=== PATIENT | male | born 1980 | race Caucasian/White ===

== ENCOUNTER 2016-10-25 18:35 | Emergency (ER) | payer BC, MEDICAID ==
[2016-10-25 18:39] VITALS: BP 112/75
[2016-10-25] MEDS ORDERED: BUFFERED LIDOCAINE 10 ML SYRINGE ONE (19:19)
--- NOTE | 2016-10-25 19:20 | ED Physician Documentation ---
PD HPI HEENT - Stated complaint Stated Complaint: TOOTH PX,FACIAL SWELLING - Chief complaint Chief Complaint: Heent - History obtained from History obtained from: Patient - History of Present Illness Timing - onset: Other (He has a dental infection from a right maxillary canine, was seen at the dental clinic 2 days ago and put on penicillin but despite that his facial swelling worsens. He denies fevers.) Review of Systems Constitutional: denies: Fever, Chills Ears: denies: Loss of hearing, Ear pain Nose: denies: Rhinorrhea / runny nose, Congestion Throat: reports: Dental pain / toothache. denies: Oral lesions / sores, Sore throat PD PAST MEDICAL HISTORY - Past Medical History Past Medical History: No - Past Surgical History Past Surgical History: No - Present Medications Home Medications: Ambulatory Orders Medication Instructions Recorded Confirmed HYDROcod/ACETAM 5/325 [Vesta 5/325] 1 - 2 ea PO Q6H PRN #15 tablet 10/25/16 Ibuprofen 600 mg PO QID 10/25/16 10/25/16 Penicillin Vk 500 mg PO QID 10/25/16 10/25/16 - Allergies Allergies/Adverse Reactions: Allergies Allergy/AdvReac Type Severity Reaction Status Date / Time No Known Drug Allergies Allergy Verified 10/25/16 18:39 - Social History Does the pt smoke?: No Smoking Status: Never smoker Does the pt drink ETOH?: No Does the pt have substance abuse?: No - Immunizations Immunizations are current?: No - POLST Patient has POLST: No PD ED PE NORMAL - Vitals Vital signs reviewed: Yes - General General: Alert and oriented X 3, No acute distress - HEENT HEENT: Other (Palpable gingival abscess lateral to the right maxillary premolar/ T9 with mild overlying facial swelling.) - Neck Neck: Supple, no meningeal sign, No bony TTP - Neuro Neuro: Alert and oriented X 3, Normal speech - Psych Psych: Normal mood, Normal affect Results - Vitals Vitals: Vital Signs - 24 hr 10/25/16 18:37 Temperature 37.0 C Heart Rate 110 H Respiratory 16 Rate Blood Pressure 112/75 O2 Saturation 100 Procedures - Abscess I&D (location) Dental Preparation: Lidocaine 1% (with bicarb) Incision: Incised with scalpel, Purulent drainage (a lot) Other: Pt tolerated well Departure - Departure Disposition: 01 Home, Self Care Clinical Impression: Dental abscess Condition: Good Record reviewed to determine appropriate education?: Yes Instructions: ED Abscess Dental Prescriptions: HYDROcod/ACETAM 5/325 [Vesta 5/325] 1 - 2 ea PO Q6H PRN #15 tablet PRN Reason: Pain Comments: It is very important that she follow-up with a dentist. When it comes to dental problems like yours, the emergency department can only offer a short- term solution to your long-term problem. A couple of low cost options for dental care include: [facility] in [place], calls [phone] for an appointment Or [facility] in [place], call [phone] for an appointment.
[2016-10-25] MEDS ORDERED: HYDROcod/ACET 5/325 Prepack 6 PO STA (19:41)
[2016-10-25] MEDS ORDERED: HYDROcod/ACET 5/325 Prepack 6 PO ONE (19:46)
== END 2016-10-25 19:52 | disposition home or self-care (01) ==
LOC: ED 18:35
DX: K04.7 Periapical abscess without sinus (principal)
CPT/HCPCS: 41800; 99283